=== PATIENT | male | born 1935 | race Caucasian/White ===

== ENCOUNTER → 2017-01-09 | Outpatient (CLI) | payer OTHER | LOC: MMPC 11:11 | DX: M19.072 Primary osteoarthritis, left ankle and foot (principal); I10 Essential (primary) hypertension; E66.9 Obesity, unspecified; E78.5 Hyperlipidemia, unspecified; E55.9 Vitamin D deficiency, unspecified; Z85.038 Personal history of other malignant neoplasm of large intestine | CPT/HCPCS: 99213; G0463 ==

== ENCOUNTER → 2017-02-02 | Outpatient (CLI) | payer OTHER ==
--- NOTE | 2017-02-02 12:29 | DI ---
PA /LATERAL CHEST X-RAY, 02/02/2017 11:58 AM : Clinical History: Upper respiratory tract infection. Previous Exam: 11/21/2014. There is no acute soft tissue or bony abnormality. The patient is status post right humeral head repl acement. Heart size is normal. There is some discoid atelectasis in the left costophrenic angle. No a cute infiltrate or effusion is present. There is centrilobular emphysema. Mediastinal structures are normal. There are no pulmonary nodules. Readin. There is no acute infiltrate or effusion. 2. Centrilobular emphysema.
== END ==
LOC: MOB RAD 11:59
PROVIDERS: ATTEND Physician Assistant
DX: J06.9 Acute upper respiratory infection, unspecified (principal); J43.2 Centrilobular emphysema
CPT/HCPCS: 71020

== ENCOUNTER → 2017-05-09 | Outpatient (CLI) | payer OTHER | LOC: MOB LAB 13:25 | DX: R94.6 Abnormal results of thyroid function studies (principal); M54.5 Low back pain; I10 Essential (primary) hypertension; E78.5 Hyperlipidemia, unspecified; E66.9 Obesity, unspecified; M54.2 Cervicalgia; R60.0 Localized edema; G56.03 Carpal tunnel syndrome, bilateral upper limbs; M19.90 Unspecified osteoarthritis, unspecified site | CPT/HCPCS: 36415; 84436; 84443; 84480; 99213; G0463 ==

== ENCOUNTER → 2017-05-16 | Outpatient (CLI) | payer OTHER ==
--- NOTE | 2017-05-16 11:53 | DI ---
XR ANKLE COMPLETE MIN 3VW,05/16/2017 9:04 AM: Clinical History: Left ankle pain Previous Exam: March 12, 2013 Findings: 3 views of the left ankle are obtained, and demonstrate diffuse osteopenia. The tarsometatarsal joints are intact. There are mild degenerative changes of the subtalar joints. There is some osteophyte formation at the insertion of the Achilles tendon and the plantar fascia. There is some loss of joint space at the tibiotalar joint. Impression: 1. 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 2. Diffuse osteopenia. 3. Osteophyte formation at the insertion of the Achilles tendon and the plantar fascia. Correlate wit h symptoms of plantar fasciitis.
== END ==
LOC: ORTHO 08:23
PROVIDERS: ATTEND Orthopaedic Surgery
DX: M25.572 Pain in left ankle and joints of left foot (principal); M19.072 Primary osteoarthritis, left ankle and foot
CPT/HCPCS: 73610